=== PATIENT | female | born 1980 | race Caucasian/White ===

== ENCOUNTER 2018-04-14 09:42 | Inpatient (IN) | payer OTHER ==
[2018-04-14] MEDS ORDERED: NS 0.9% 1000 ML* 1,000 ML IV ONE ×3 (10:22→14:32)
[2018-04-14] MEDS ORDERED: Albuterol/Ipratropium NEB.SOL* Albuterol 2.5 MG/Ipratropium 0.5 MG 3 ML INH ONE ×2 (10:22→12:36)
--- NOTE | 2018-04-14 10:39 | ED ---
Shortness of Breath - HPI Summary HPI Summary: A 37 y/o F presents to ED with c/o SOB ongoing for 10 days and worsening. Associated sx: cough, hot/cold flashes, REED, malaise, sore throat, chest heaviness, nausea, v/d, stress rash to upper torso. Denies: blurry vision, pedal edema. No PMHx: COPD. She states she doesn't go to the doctor often. She is menstruating and it is heavier than usual. Pt is a smoker, ETOH daily. - History of Current Complaint Chief Complaint: EDShortnessOfBreath Hx Obtained From: Patient, Family/Claim Adjuster - boyfriend Onset/Duration: Lasting Hours, Still Present Timing: Constant Current Severity: Moderate Dyspnea At: Rest Associated Signs & Symptoms: Cough (Nonproductive) - Allergy/Home Medications Allergies/Adverse Reactions: Allergies Allergy/AdvReac Type Severity Reaction Status Date / Time No Known Allergies Allergy Verified 04/14/18 10:00 Home Medications: Home Medications NK [No Home Medications Reported] 04/14/18 [History Confirmed 04/14/18] PMH/Surg Hx/FS Hx/Imm Hx Previously Healthy: Yes Respiratory History: Denies: Hx Chronic Obstructive Pulmonary Disease (COPD) Sensory History: Denies: Hx Deafness Opthamlomology History: Denies: Hx Legally Blind Infectious Disease History: No Infectious Disease History: Denies: Traveled Outside the [place] in Last 30 Days - Family History Known Family History: Positive: Other - half sister ovarian CA - Social History Occupation: Unemployed - OTHER Lives: With Family Alcohol Use: Daily Hx Tobacco Use: Yes Review of Systems Positive: Other - hot/cold flashes; malaise Negative: Blurred Vision Positive: Sore Throat Positive: Chest Pain - "heaviness" Positive: Shortness Of Breath, Cough Positive: Vomiting, Diarrhea, Nausea Positive: other - menstruating currently Negative: Edema - pedal edema Positive: Rash - "stress" rash to upper torso Positive: Headache All Other Systems Reviewed And Are Negative: No Physical Exam - Summary Physical Exam Summary: Appearance: Alert, conversive, nontoxic appearing Skin: Warm, dry, no mottling, no rashes, no contusions. Pale. HEENT: EOMI, PERRL, dry mucous membranes Neck: No masses on the neck, supple Respiratory: Wheezing. Cardiovascular: RRR, pulses are symmetrical in both lower and upper extremities Abdomen: Soft, non-tender Bowel Sounds: Present Musculoskeletal: No CVA tenderness, no obvious deformity, moving all extremities in a grossly normal manner Neurological: A&Ox3, CN II-XII Intact, moving all extremities symmetrically Psychiatric: Normal affect and mood Triage Information Reviewed: Yes Vital Signs On Initial Exam: Initial Vitals Temp Pulse Resp BP Pulse Ox 98.6 F 106 24 143/94 91 04/14/18 09:52 04/14/18 09:52 04/14/18 09:52 04/14/18 09:52 04/14/18 09:52 Vital Signs Reviewed: Yes Diagnostics - Vital Signs Vital Signs Temp Pulse Resp BP Pulse Ox 04/14/18 09:52 98.6 F 106 24 143/94 91 - Laboratory Result Diagrams: 04/14/18 10:53 04/14/18 10:53 Lab Statement: Any lab studies that have been ordered have been reviewed, and results considered in the medical decision making process. - Radiology CXR Xray Interpretation: Positive (See Comments) - IMPRESSION: HYPERINFLATION WHICH CAN BE SEEN WITH COPD OR REACTIVE AIRWAY DISEASE. NO ACTIVE CARDIOPULMONARY DISEASE. ED provider has reviewed this report. Radiology Interpretation Completed By: Radiologist Re-Evaluation - Re-Evaluation 1 Re-Evaluation Time: 11:56 Change: Improved Comment: Feeling better after one breathing treatment, did make her feel a bit nauseous. Will order Zofran. Lungs are less wheezy. 2 Re-Evaluation Time: 12:49 Change: Unchanged Comment: Pt still feels lightheaded and dizzy. Has not received 2nd breathing treatment or 2nd bag of fluids. 3 Re-Evaluation Time: 14:28 Change: Unchanged Comment: Pt still feeling dizzy, lightheadedness. Per pt's boyfriend, pt just finished 7 day course of Levaquin. 4 Re-Evaluation Time: 17:08 Change: Unchanged Comment: Pt appears visibly improved. However, pt was 88% on room air after ambulating around ED. 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 Associated sx: coughing, hot/cold flashes, REED, malaise, sore throat, chest heaviness, nausea, v/d, stress rash to upper torso. Flu test are negative. Personally ambulated pt around ED. Pt was 88% on room air afterwards. - Diagnoses Provider Diagnoses: Upper respiratory infection - Physician Notifications Discussed Care of Patient With: Susan Arana - hospitalist Time Discussed With Above Provider: 17:28 Instructed by Provider To: Admit As Inpatient Discharge - Sign-Out/Discharge Documenting (check all that apply): Patient Departure - ADM - Discharge Plan Condition: Stable Disposition: ADMITTED TO [facility] - Billing Disposition and Condition Condition: STABLE Disposition: Admitted to [facility] - Attestation Statements Document Initiated by Scribe: Yes Documenting Scribe: London Whitaker Provider For Whom Franko is Documenting (Include Credential): Dr. Yashira Jean MD Scribe Attestation: London Rasheed, scribed for Dr. Yashira Jean MD on 04/14/18 at 2150. Scribe Documentation Reviewed: Yes Provider Attestation: The documentation as recorded by the scribeLondon accurately reflects the service I personally performed and the decisions made by me, Dr. Yashira Jean MD
--- NOTE | 2018-04-14 11:01 | RAD ---
HISTORY: cough, sob COMPARISONS: None VIEWS: 4: Frontal dual-energy and lateral views of the chest. FINDINGS: CARDIOMEDIASTINAL SILHOUETTE: The cardiomediastinal silhouette is normal. DONITA: The donita are normal. PLEURA: The costophrenic angles are sharp. No pleural abnormalities are noted. LUNG PARENCHYMA: There is hyperinflation with flattening of the diaphragm and expansion of the retrosternal airspace.. ABDOMEN: The upper abdomen is clear. There is no subphrenic gas. BONES AND SOFT TISSUES: No bone or soft tissue abnormalities are noted. OTHER: None. IMPRESSION: HYPERINFLATION WHICH CAN BE SEEN WITH COPD OR REACTIVE AIRWAY DISEASE. NO ACTIVE CARDIOPULMONARY DISEASE.
[2018-04-14 11:06] LABS: ABS Basophils 0.1 10^3/ul (0-0.2); ABS Eosinophils 0.3 10^3/ul (0-0.6); ABS Lymphocytes 1.3 10^3/ul (1.0-4.8); ABS Monocytes 0.7 10^3/ul (0-0.8); ABS Neutrophils 12.5 10^3/ul (1.5-7.7); ABS Nucleated RBC 0 10^3/ul; Eosinophil % 1.7 % (0-6); Hematocrit 48 % (35-47); Hemoglobin 15.9 g/dl (12.0-16.0); Lymphocyte % 8.9 % (25-47); Mean Corpuscular HGB Conc 33 g/dl (31-36); Mean Corpuscular Hemoglobin 31 pg (27-31); Mean Corpuscular Volume 94 fL (80-97); Mean Platelet Volume 8.1 um3 (7.4-10.4); Nucleated Red Blood Cells % 0.1; Platelet Count 237 10^3/ul (150-450); Red Blood Count 5.08 10^6/ul (4.00-5.40); Red Cell Distribution Width 13 % (10.5-15); White Blood Count 14.8 10^3/ul (3.5-10.8)
[2018-04-14] MEDS ORDERED: Ketorolac INJ* 30 MG/ML 1 ML VIAL IV PUSH ONE (11:14)
[2018-04-14] MEDS ORDERED: Ondansetron INJ* 2 MG/ML VIAL IV ONE (11:14)
[2018-04-14 11:20] LABS: EGFR Non-African American 83.6 (>60)
[2018-04-14] MEDS ORDERED: methylPREDNISolone 125 MG* 2 ML VIAL IV ONE (11:54)
[2018-04-14] MEDS ORDERED: Metoclopramide IV* 5 MG/ML 2 ML VIAL IV SLOW PU ONE (14:32)
[2018-04-14] MEDS ORDERED: Mouth Piece, Nicotine* 1 EACH CARTRIDGE INH PRN (18:07)
[2018-04-14] MEDS ORDERED: Nicotine Inhaler* 10 MG AMP INH PRN (18:07)
--- NOTE | 2018-04-14 18:09 | ADMNOTE ---
Subjective Date of Service: 04/14/18 Interval History: ADMISSION HISTORY AND PHYSICAL EXAM: Allergies Allergy/AdvReac Type Severity Reaction Status Date / Time No Known Allergies Allergy Verified 04/14/18 10:00 Home Medications Medication Instructions Recorded Confirmed Type NK [No Home Medications Reported] 04/14/18 04/14/18 History HPI: The patient was in her usual state of health until about 10 days ago. She developed cough, chills, sweats. She was given a 7 day course of levofloxacin by her SOs father, which she finished 2 days ago. SHe had a rash on her trunk which has mostly resolved. Family History: Findings - Half-sister had ovarian cancer. Social History: Findings - Smokes, no alcohol abuse. 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 SO Bernardo Sue is her SDM. Past Medical History: Findings - Nulligravida. Surgery on umbilicus age 4, surgery cyst behind R ear as adult. Review of Systems - Measurements Intake and Output: Intake and Output Last 24 Hours 04/12/18 04/13/18 04/14/18 04/15/18 06:59 06:59 06:59 06:59 Intake Total 1000 Balance 1000 Weight 98 lb Intake: IV Fluids 1000 - Review of Systems Constitutional Symptoms: Negative: Weight Gain, Weight Loss, Weakness, Fatigue, Fever, Night Sweats, Unexplained Falls, Other Dermatology: Positive: Normal HEENT: Positive: Normal Eyes: Positive: Normal Thyroid: Positive: Normal Pulmonary: Positive: Cough Cardiology: Positive: Normal Gastroenterology: Positive: Normal Genital - Urinary: Positive: Normal Endocrinology: Positive: Normal Hematologic/Lymphatic: Negative: Anemia, Easy Brusing, Hx Leukemia, Hx Lymphoma, Use of Anticoagulant, Use of Antiplatelet Drugs, Other Neurology: Positive: Normal Psychiatry: Positive: Normal Allergic/Immunologic: Negative: Hx Anaphylaxis, Hx Angioedema, Hx Environmental, Hx Seasonal, Athsma, Hx HIV, Immunocompromise, Swollen Glands LymphNodes, Other Objective Active Medications: Potassium Chloride/Dextrose (D5w 1/2 Ns Kcl 20 Meq 1000 Ml*) 1,000 mls @ 100 mls/hr IV PER RATE [facility] Methylprednisolone Sodium Succinate (Solu-Medrol 40 Mg) 40 mg IV Q8H [facility] Vital Signs - 8 hr 04/14/18 04/14/18 04/14/18 11:00 12:03 12:30 Pulse Rate 78 Respiratory 17 17 25 Rate Blood Pressure 113/86 128/89 128/84 (mmHg) O2 Sat by Pulse 94 Oximetry 04/14/18 04/14/18 04/14/18 13:00 13:30 14:00 Pulse Rate 81 80 Respiratory 16 16 20 Rate Blood Pressure 142/103 141/76 142/91 (mmHg) O2 Sat by Pulse 91 92 Oximetry 04/14/18 04/14/18 04/14/18 14:30 14:59 15:01 Pulse Rate 97 Respiratory 19 20 17 Rate Blood Pressure 148/96 134/90 142/98 (mmHg) O2 Sat by Pulse 90 Oximetry 04/14/18 04/14/18 04/14/18 15:02 15:30 16:00 Pulse Rate Respiratory 18 19 30 Rate Blood Pressure 138/87 147/93 127/73 (mmHg) O2 Sat by Pulse Oximetry 04/14/18 16:30 Pulse Rate Respiratory 28 Rate Blood Pressure 125/80 (mmHg) O2 Sat by Pulse Oximetry Oxygen Devices in Use Now: Nasal Cannula Appearance: Alert, sitting up on ED stretcher. In fair spirits. Occ dry cough , somewhat tachypneic. Eyes: No Scleral Icterus Ears/Nose/Mouth/Throat: Clear Oropharnyx, Mucous Membranes Moist Neck: NL Appearance and Movements; NL JVP, No Thyroid Enlargement, Masses Respiratory: Symmetrical Chest Expansion and Respiratory Effort, Clear to Percussion, - - severe wheezing, delayed expiration BL Cardiovascular: NL Sounds; No Murmurs; No JVD, RRR, No Edema, - Abdominal: NL Sounds; No Tenderness; No Distention, No Hepatosplenomegaly, - Extremities: No Edema, No Clubbing, Cyanosis, - Skin: No Nodules or Sclerosis, - - FIne macular rash lower anterior chest. Neurological: Alert and Oriented x 3, NL Sensation, NL Gait, NL Muscle Strength and Tone, - Result Diagrams: 04/14/18 10:53 04/14/18 10:53 Microbiology and Other Data: Microbiology 04/14/18 12:00 Influenza Types A,B Antigen - Final Nasal Specimen received for Influenza A/B Molecular testing Assess/Plan/Problems-Billing Assessment: - Patient Problems (1) Asthmatic bronchitis Current Visit: Yes Status: Acute Code(s): J45.909 - UNSPECIFIED ASTHMA, UNCOMPLICATED SNOMED Code(s): 010588796 Comment: Rash supports viral etiology. She did not respond to 7 days of levofloxacin, will hold off antibiotic now unless repeat lactic acid is higher. IV steroids, inhaled Duoneb. Monitor peak flow. (2) Tobacco abuse Current Visit: Yes Status: Acute Code(s): Z72.0 - TOBACCO USE SNOMED Code( s): 119867773 Comment: Pt advised to quit smoking and avoid second hand smoke. Her SO smokes. NRT ordered. Pt states she started smoking age 13 and was smoking steadily by age 16.
[2018-04-14] MEDS ORDERED: Albuterol (2.5 MG) 0.5 % CONC 2.5 MG/0.5 ML NEB.SOLN (ICU and ED only) INH ONE (18:17)
[2018-04-14] MEDS ORDERED: Albuterol 2.5 MG/3 ML NEB.SOL* (0.083%) INH PRN (18:21)
[2018-04-14] MEDS: D5W 1/2 NS KCl 20 Meq 1000 ML* 1,000 ML IV SCH (19:38)
[2018-04-14] MEDS: Albuterol/Ipratropium NEB.SOL* Albuterol 2.5 MG/Ipratropium 0.5 MG 3 ML INH SCH ×2 (19:48→22:19)
[2018-04-14] MEDS: methylPREDNISolone SOD 40 MG* 1 ML VIAL IV SCH (20:38)
[2018-04-14] MEDS ORDERED: Iohexol 350* (CONTRAST) 500 ML MDV IV ONE (21:39)
[2018-04-14] MEDS: Ondansetron INJ* 2 MG/ML VIAL IV PRN (22:13)
--- NOTE | 2018-04-14 22:28 | RAD ---
EXAM: CT Angiography Chest With Intravenous Contrast EXAM DATE/TIME: 04/14/2018 10:00 PM CLINICAL HISTORY: 37 years old, female; Signs and symptoms; Shortness of breath; Additional info: R/O pe TECHNIQUE: Axial computed tomographic angiography images of the chest with intravenous contrast using CT angiography protocol. All CT scans at this facility use at least one of these dose optimization techniques: automated exposure control; mA and/or kV adjustment per patient size (includes targeted exams where dose is matched to clinical indication); or iterative reconstruction. Coronal and sagittal reformatted images were created and reviewed. MIP reconstructed images were created and reviewed. CONTRAST: 51 ml of OMNI 350 administered intravenously. COMPARISON: DX CXR CHEST PA LAT 2 VWS 04/14/2018 10:29 AM FINDINGS: Pulmonary arteries: Pulmonary arteries are well opacified to the subsegmental branches. Normal caliber main pulmonary artery. No filling defects throughout the pulmonary artery tree. Aorta: Normal caliber aorta with no evidence of dissection or rupture. Lungs: Mild centrilobular emphysematous disease. No pulmonary nodules, masses, or consolidations. No bronchiectasis, peribronchial thickening, or luminal defects. Pleural space: Normal. No pneumothorax. No pleural effusion. Heart: Normal. No cardiomegaly. No pericardial effusion. Thyroid: No thyroid nodules. Bones/joints: No fractures. No suspicious bone lesions. Soft tissues: Normal. Lymph nodes: Normal. No enlarged lymph nodes. IMPRESSION: 1. No pulmonary emboli. 2. Mild emphysema. To contact [facility] with a general question: [facility] - [phone] For direct physician to physician contact: Physician Hotline - [phone] [facility] ([facility] Facility ID #[id number])
[2018-04-15] MEDS: methylPREDNISolone SOD 40 MG* 1 ML VIAL IV SCH (03:08)
[2018-04-15] MEDS: D5W 1/2 NS KCl 20 Meq 1000 ML* 1,000 ML IV SCH ×3 (05:20→21:36)
[2018-04-15] MEDS: Ondansetron INJ* 2 MG/ML VIAL IV PRN ×2 (05:24→19:45)
[2018-04-15] MEDS: Albuterol/Ipratropium NEB.SOL* Albuterol 2.5 MG/Ipratropium 0.5 MG 3 ML INH SCH ×4 (07:40→19:32)
--- NOTE | 2018-04-15 07:59 | PN ---
Subjective Date of Service: 04/15/18 Interval History: Slighlty better. No new c/o. She refused the nicotine patch. Nausea with neb treatments, ondansetron IV was ordered. Family History: Findings - Half-sister had ovarian cancer. Social History: Findings - Smokes, no alcohol abuse. 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 SO Bernardo Sue is her SDM. Past Medical History: Findings - Nulligravida. Surgery on umbilicus age 4, surgery cyst behind R ear as adult. Objective Active Medications: Albuterol (Ventolin 2.5 Mg/3 Ml Neb.Tarsha*) 2.5 mg INH Q2H PRN PRN Reason: WHEEZING Last Admin: 04/15/18 04:54 Dose: 2.5 mg Albuterol/Ipratropium (Duoneb (Albuterol 2.5 Mg/Ipratropium 0.5 Mg)) 1 neb INH [id number] AWAKE [facility]LLY Last Admin: 04/15/18 07:40 Dose: 1 neb Device (Nicotine Mouth Piece*) 1 each INH .USE WITH NICOTROL PRN PRN Reason: CRAVING Last Admin: 04/14/18 20:36 Dose: 1 each Potassium Chloride/Dextrose (D5w 1/2 Ns Kcl 20 Meq 1000 Ml*) 1,000 mls @ 70 mls /hr IV PER RATE [facility] Nicotine (Nicotine Inhaler*) 10 mg INH Q2H PRN PRN Reason: CRAVING Last Admin: 04/14/18 20:35 Dose: 10 mg Nicotine (Nicotine Patch 7 Mg/24 Hr*) 1 patch TRANSDERM DAILY [facility] Ondansetron HCl (Zofran Inj*) 4 mg IV Q6H PRN PRN Reason: NAUSEA Last Admin: 04/15/18 05:24 Dose: 4 mg Pharmacy Profile Note (Nicotine Patch Removal Note*) 1 note PATCH OFF 2100 [facility] Prednisone (Deltasone Tab*) 50 mg PO DAILY [facility] Vital Signs - 8 hr 04/15/18 04/15/18 04/15/18 04:21 04:56 06:17 Temperature 98.2 F Pulse Rate 110 97 88 Respiratory 16 Rate Blood Pressure 90/76 114/63 (mmHg) O2 Sat by Pulse 98 98 Oximetry 04/15/18 07:36 Temperature Pulse Rate 113 Respiratory 16 Rate Blood Pressure (mmHg) O2 Sat by Pulse 98 Oximetry Oxygen Devices in Use Now: Nasal Cannula Appearance: Alert, sitting up in bed. In fair spirits. Somewhat tachypneic and occ harsh cough. Eyes: No Scleral Icterus Neck: NL Appearance and Movements; NL JVP, No Thyroid Enlargement, Masses Respiratory: Symmetrical Chest Expansion and Respiratory Effort, Clear to Percussion, - - Mod wheezing BL, better air movement than yesteday Cardiovascular: NL Sounds; No Murmurs; No JVD, RRR, No Edema, - Extremities: No Edema, No Clubbing, Cyanosis, - Neurological: Alert and Oriented x 3 Result Diagrams: 04/14/18 10:53 04/14/18 10:53 Microbiology and Other Data: Microbiology 04/14/18 12:00 Influenza Types A,B Antigen - Final Nasal Specimen received for Influenza A/B Molecular testing Assess/Plan/Problems-Billing Assessment: - Patient Problems (1) Asthmatic bronchitis Current Visit: Yes Status: Acute Code(s): J45.909 - UNSPECIFIED ASTHMA, UNCOMPLICATED SNOMED Code(s): 807992945 Comment: Rash supports viral etiology. She did not respond to 7 days of levofloxacin, will hold off antibiotic. Continue inhaled Duoneb, change to oral prednisone, last dose IV steroid 3 AM 04/15. Continue to monitor peak flow. (2) Tobacco abuse Current Visit: Yes Status: Acute Code(s): Z72.0 - TOBACCO USE SNOMED Code( s): 827706368 Comment: Pt advised to quit smoking and avoid second hand smoke. Her SO smokes. NRT ordered. Pt states she started smoking age 13 and was smoking steadily by age 16.
[2018-04-15] MEDS: Nicotine PATCH 7 MG/24 HR* PATCH TRANSDERM SCH (09:42)
[2018-04-15] MEDS: guaiFENesin ER TAB 600 MG PO SCH ×2 (15:51→21:40)
[2018-04-15] MEDS ORDERED: Levalbuterol 1.25MG/0.5ML NEB INH PRN (17:12)
--- NOTE | 2018-04-15 17:22 | PN ---
Progress Note - Progress Note Date of Service: 04/15/18 Note: The patient reports her sputum has turned yellow. Still had mod-sever wheezing BL. Two breaths per sentence, occ pursed-lip breathing. Start azithromycin and ceftriaxone. Start mometasone/formoterol OM 04/15. COntinue to monitor peak flow.
[2018-04-15] MEDS: Azithromycin IV(*) 500 MG in NS 0.9% 250 ML* 250 ML IVPB SCH (18:05)
[2018-04-15] MEDS: Mometasone/Formoter 200/5 MDI INH SCH (19:32)
[2018-04-15] MEDS: Levalbuterol 1.25MG/0.5ML NEB INH SCH (19:41)
[2018-04-15] MEDS: cefTRIAXone(*) 1 GM in NS 0.9% 50 ML* 50 ML IVPB SCH (21:37)
[2018-04-15] MEDS: Nicotine Patch Removal NOTE PATCH OFF SCH (21:40)
[2018-04-16] MEDS: Levalbuterol 1.25MG/0.5ML NEB INH SCH ×4 (00:17→10:48)
[2018-04-16] MEDS: Albuterol/Ipratropium NEB.SOL* Albuterol 2.5 MG/Ipratropium 0.5 MG 3 ML INH SCH ×7 (00:18→23:03)
[2018-04-16] MEDS ORDERED: Benzonatate CAP* 100 MG PO PRN (01:10)
[2018-04-16] MEDS: traZODone TAB* 50 MG TAB PO PRN (01:20)
[2018-04-16] MEDS: Mometasone/Formoter 200/5 MDI INH SCH ×2 (07:57→19:45)
[2018-04-16] MEDS ORDERED: predniSONE TAB* 50 MG PO SCH (09:00)
[2018-04-16 09:04] LABS: ABS Basophils 0.1 10^3/ul (0-0.2); ABS Eosinophils 0 10^3/ul (0-0.6); ABS Lymphocytes 1.6 10^3/ul (1.0-4.8); ABS Neutrophils 14.8 10^3/ul (1.5-7.7); ABS Nucleated RBC 0 10^3/ul; Eosinophil % 0.2 % (0-6); Hematocrit 38 % (35-47); Hemoglobin 13.1 g/dl (12.0-16.0); Mean Corpuscular HGB Conc 35 g/dl (31-36); Mean Corpuscular Hemoglobin 32 pg (27-31); Mean Corpuscular Volume 92 fL (80-97); Nucleated Red Blood Cells % 0; Platelet Count 218 10^3/ul (150-450); Red Blood Count 4.12 10^6/ul (4.00-5.40); Red Cell Distribution Width 13 % (10.5-15); White Blood Count 17.5 10^3/ul (3.5-10.8)
[2018-04-16] MEDS: Enoxaparin(*) 40 MG/0.4 ML SYR SUBCUT SCH (10:09)
[2018-04-16] MEDS: guaiFENesin ER TAB 600 MG PO SCH ×2 (10:10→21:51)
[2018-04-16] MEDS: Nicotine PATCH 7 MG/24 HR* PATCH TRANSDERM SCH (10:10)
[2018-04-16] MEDS ORDERED: Levalbuterol 1.25MG/0.5ML NEB INH PRN (11:34)
--- NOTE | 2018-04-16 13:09 | PN ---
Subjective Date of Service: 04/16/18 Interval History: Pt seen and examined. Meds and labs reviewed. CC: SOB improved from yesterday and nasal congestion ROS: Denied REED/dizziness, F/C, N/V, CP, increased cough, sputum volume and color improving, abd pain, diarrhea, constipation, dysuria, myalgias, arthralgias, throat pain, and new skin lesions. The rest of the 14 point ROS are unremarkable. PHYSICAL EXAM: GEN APPEARANCE: Awake, not in acute distress HEENT: NC/AT, PERRLA, moist oral mucosa, (-) throat erythema NECK: Soft, supple, (-) cervical LAD, (-)JVD HEART: S1S2 WNL, RRR, No MRG CHEST: (+)Wheezing throughout all lung sosa, poor air entry at bases, No W/R/R ABD: Soft, ND/NT, NABS 4x Q EXT: No C/C/E SKIN: Warm to touch PSYCH: No active psychosis, hallucinations, depression, SI/HI Family History: Findings - Half-sister had ovarian cancer. Social History: Findings - Smokes, no alcohol abuse. 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 SO Bernardo Poncesea is her SDM. Past Medical History: Findings - Nulligravida. Surgery on umbilicus age 4, surgery cyst behind R ear as adult. Objective Active Medications: Albuterol/Ipratropium (Duoneb (Albuterol 2.5 Mg/Ipratropium 0.5 Mg)) 1 neb INH [id number] AWAKE [facility] Last Admin: 04/16/18 10:51 Dose: Not Given Benzonatate (Tessalon Cap*) 100 mg PO BID PRN PRN Reason: COUGH Last Admin: 04/16/18 02:55 Dose: 100 mg Device (Nicotine Mouth Piece*) 1 each INH .USE WITH NICOTROL PRN PRN Reason: CRAVING Last Admin: 04/14/18 20:36 Dose: 1 each Enoxaparin Sodium (Lovenox(*)) 40 mg SUBCUT Q24H [facility] Last Admin: 04/16/18 10:09 Dose: 40 mg Guaifenesin (Mucinex*) 600 mg PO BID [facility] Last Admin: 04/16/18 10:10 Dose: 600 mg Potassium Chloride/Dextrose (D5w 1/2 Ns Kcl 20 Meq 1000 Ml*) 1,000 mls @ 70 mls /hr IV PER RATE [facility] Last Admin: 04/15/18 21:36 Dose: 70 mls/hr Ceftriaxone Sodium 1 gm/ (Sodium Chloride) 50 mls @ 200 mls/hr IVPB Q24H [facility] Last Admin: 04/15/18 21:37 Dose: 200 mls/hr Azithromycin 500 mg/ Sodium (Chloride) 250 mls @ 250 mls/hr IVPB Q24H [facility] Last Admin: 04/15/18 18:05 Dose: 250 mls/hr Levalbuterol HCl (Xopenex 1.25 Mg/0.5 Ml Neb.Tarsha*) 1.25 mg INH Q2H PRN PRN Reason: Wheezing/SOB Methylprednisolone Sodium Succinate (Solu-Medrol 40 Mg) 40 mg IV Q6H [facility] Mometasone Furoate/Formoterol Fumar (Dulera 200/5 Mdi*) 2 puff INH BID [facility] Last Admin: 04/16/18 07:57 Dose: 2 puff Nicotine (Nicotine Inhaler*) 10 mg INH Q2H PRN PRN Reason: CRAVING Last Admin: 04/14/18 20:35 Dose: 10 mg Nicotine (Nicotine Patch 7 Mg/24 Hr*) 1 patch TRANSDERM DAILY [facility] Last Admin: 04/16/18 10:10 Dose: Not Given Ondansetron HCl (Zofran Inj*) 4 mg IV Q6H PRN PRN Reason: NAUSEA Last Admin: 04/15/18 19:45 Dose: 4 mg Oxymetazoline HCl (Afrin 0.05% Nasal Elmo*) 2 spray BOTH NARES BID [facility] Stop: 04/19/18 12:59 Pharmacy Profile Note (Nicotine Patch Removal Note*) 1 note PATCH OFF 2100 [facility] Last Admin: 04/15/18 21:40 Dose: 1 note Trazodone HCl (Desyrel Tab*) 50 mg PO BEDTIME PRN PRN Reason: SLEEP Last Admin: 04/16/18 01:20 Dose: 50 mg Vital Signs - 8 hr 04/16/18 04/16/18 04/16/18 07:17 08:00 08:03 Temperature 97.7 F Pulse Rate 116 105 Respiratory 16 14 16 Rate Blood Pressure 117/85 (mmHg) O2 Sat by Pulse 95 94 Oximetry 04/16/18 04/16/18 08:04 10:52 Temperature Pulse Rate 105 Respiratory 16 14 Rate Blood Pressure (mmHg) O2 Sat by Pulse 94 Oximetry Oxygen Devices in Use Now: None Result Diagrams: 04/16/18 08:55 04/16/18 08:55 Microbiology and Other Data: Microbiology 04/14/18 12:00 Influenza Types A,B Antigen - Final Nasal Specimen received for Influenza A/B Molecular testing Assess/Plan/Problems-Billing Assessment: - Patient Problems (1) Asthmatic bronchitis Current Visit: Yes Status: Acute Code(s): J45.909 - UNSPECIFIED ASTHMA, UNCOMPLICATED SNOMED Code(s): 214295269 Comment: -Rash supports viral etiology. She did not respond to 7 days of levofloxacin, will hold off antibiotic. -Pts CTA of chest 2 days prior shows no PE -Will repeat CXR, PA-lateral to determine if PNA has subsequently developed; For ABG and ambulatory sats in AM; pt had been placed on Rocephin and Azithromycin yesterday -Will increase Solumedrol frequency as ordered -Will adjust nebulization as ordered (2) Tobacco abuse Current Visit: Yes Status: Acute Code(s): Z72.0 - TOBACCO USE SNOMED Code( s): 797846296 Comment: -Advised life-style modifications -Continue Nicotine patch (3) DVT prophylaxis Current Visit: Yes Status: Acute Code(s): [id number] - SNOMED Code(s): 372543706 Comment: -Will place pt on low dose SQ Lovenox Status and Disposition: -For ambulatory saturation and ABG in AM -For possible D/C in 1-2 days
--- NOTE | 2018-04-16 14:07 | RAD ---
HISTORY: Persistent wheeing and SOB with sputum quality renato COMPARISONS: April 14, 2018 VIEWS: 4: Frontal dual-energy and lateral views of the chest. FINDINGS: CARDIOMEDIASTINAL SILHOUETTE: The cardiomediastinal silhouette is normal. DONITA: The donita are normal. PLEURA: The costophrenic angles are sharp. No pleural abnormalities are noted. LUNG PARENCHYMA: There is hyperinflation with flattening of the diaphragm and expansion of the retrosternal airspace. ABDOMEN: The upper abdomen is clear. There is no subphrenic gas. BONES AND SOFT TISSUES: No bone or soft tissue abnormalities are noted. OTHER: None. IMPRESSION: HYPERINFLATION. NO ACTIVE CARDIOPULMONARY DISEASE.
[2018-04-16] MEDS: Oxymetazoline 0.05% NASAL SPR* 15 ML BTL BOTH NARES SCH ×3 (15:14→21:51)
[2018-04-16] MEDS: methylPREDNISolone SOD 40 MG* 1 ML VIAL IV SCH ×3 (15:14→23:32)
[2018-04-16] MEDS: D5W 1/2 NS KCl 20 Meq 1000 ML* 1,000 ML IV SCH (15:59)
[2018-04-16] MEDS: cefTRIAXone(*) 1 GM in NS 0.9% 50 ML* 50 ML IVPB SCH (19:20)
[2018-04-16] MEDS: Azithromycin IV(*) 500 MG in NS 0.9% 250 ML* 250 ML IVPB SCH (19:20)
[2018-04-16] MEDS ORDERED: Fluticasone-Salmeterol 500-50* DISKUS INH SCH (21:00)
[2018-04-16] MEDS ORDERED: PROCHLORPERAZINE INJ 5 MG/ML 2 ML VIAL IV PRN (21:30)
--- NOTE | 2018-04-16 21:31 | PN ---
Progress Note - Progress Note Date of Service: 04/16/18 Note: Paged - patient has adverse reaction while getting IV azithromycin - second night in a row where she becomes clammy, anxious and nauseated. Will D/C azithromycin. No PNA seen on CTA. Zofran did not help for her. Add compazine.
[2018-04-16] MEDS: Nicotine Patch Removal NOTE PATCH OFF SCH (21:51)
[2018-04-17] MEDS: traZODone TAB* 50 MG TAB PO PRN (01:32)
[2018-04-17] MEDS: D5W 1/2 NS KCl 20 Meq 1000 ML* 1,000 ML IV SCH (05:41)
[2018-04-17] MEDS: methylPREDNISolone SOD 40 MG* 1 ML VIAL IV SCH ×2 (05:42→13:20)
[2018-04-17] MEDS: Albuterol/Ipratropium NEB.SOL* Albuterol 2.5 MG/Ipratropium 0.5 MG 3 ML INH SCH ×3 (06:20→11:52)
[2018-04-17 07:12] LABS: ABS Basophils 0 10^3/ul (0-0.2); ABS Eosinophils 0 10^3/ul (0-0.6); ABS Lymphocytes 0.8 10^3/ul (1.0-4.8); ABS Monocytes 0.3 10^3/ul (0-0.8); ABS Neutrophils 12.8 10^3/ul (1.5-7.7); ABS Nucleated RBC 0 10^3/ul; Eosinophil % 0 % (0-6); Hematocrit 38 % (35-47); Hemoglobin 13.1 g/dl (12.0-16.0); Lymphocyte % 5.7 % (25-47); Mean Corpuscular HGB Conc 35 g/dl (31-36); Mean Corpuscular Hemoglobin 32 pg (27-31); Mean Corpuscular Volume 92 fL (80-97); Mean Platelet Volume 7.9 um3 (7.4-10.4); Nucleated Red Blood Cells % 0; Platelet Count 219 10^3/ul (150-450); Red Cell Distribution Width 13 % (10.5-15); White Blood Count 13.9 10^3/ul (3.5-10.8)
[2018-04-17 07:37] LABS: EGFR Non-African American 113.1 (>60)
[2018-04-17] MEDS: Mometasone/Formoter 200/5 MDI INH SCH (08:29)
[2018-04-17] MEDS: Oxymetazoline 0.05% NASAL SPR* 15 ML BTL BOTH NARES SCH (10:06)
[2018-04-17] MEDS: guaiFENesin ER TAB 600 MG PO SCH (10:08)
[2018-04-17] MEDS: Enoxaparin(*) 40 MG/0.4 ML SYR SUBCUT SCH (10:09)
[2018-04-17] MEDS: Nicotine PATCH 7 MG/24 HR* PATCH TRANSDERM SCH (10:12)
[2018-04-17 12:41] VITALS: BP 126/85
--- NOTE | 2018-04-18 03:34 | DS ---
CC: Santosh Arauz MD; Dr. Yashira Jean; Dr. Johnathon Castro * DISCHARGE SUMMARY: DATE OF ADMISSION: DATE OF DISCHARGE: 04/17/18 DISCHARGE DIAGNOSES: 1. Asthmatic bronchitis. 2. Tobacco abuse. 3. Upper respiratory tract infection, likely viral causing asthmatic bronchitis along with her tobacco abuse. HISTORY OF PRESENT ILLNESS/HOSPITAL COURSE: The patient is a 37-year-old lady with history of asthma, who was admitted on 04/14/18 for chief complaint of cough, chills, and sweats as well as shortness of breath where she was diagnosed with asthmatic bronchitis likely secondary to a viral cause; at which point, she was initially not placed on antibiotics, but then subsequently complained that the quality of her sputum has thickened and developed more yellowish color; hence, she was then subsequently placed on Rocephin and azithromycin. Unfortunately, she has not tolerated azithromycin well given she would complain of some nausea. She also complained of some nasal congestion and has been placed on Afrin and her aforementioned symptoms have subsequently improved and feels better today. In addition, despite the fact that she was on low dose prednisone as well as nebulization, she had some significant wheezes at the time that she felt some nasal congestion. Therefore, her steroid need was increased and oxymetazoline prescribed, which resolved all of her respiratory problems along with the medication changes just described. She has done well prior to discharge and has underwent ambulatory saturations, which was otherwise unremarkable without any need for oxygen. She had been advised to follow up and/or call her PCP within 3 days post discharge and she was advised that if her symptoms resume or develop new ones or feel unwell for any reason to call her PCP first and if her PCP cannot entertain her due to scheduling issues alone to call [facility] if the issue is non- emergent. She was advised to avoid smoking and to use nicotine inhalers as needed and daily nicotine patches as ordered. She was advised to call my office regarding any questions, concerns, or further clarifications regarding her discharge plans and/or prescriptions and to take her medications as prescribed. Her discharge medications are as follows. DISCHARGE MEDICATIONS: 1. Benzonatate capsule 100 mg p.o. b.i.d. p.r.n. 2. Guaifenesin 600 mg tab ER p.o. b.i.d. for 5 days. 3. Dulera 200/5 mcg MDI 2 puffs inhalation b.i.d. for 30 days. 4. Nicotine inhaler 10 mg inhalation q.2 hours p.r.n. 5. Nicotine patch 7 mg per day. 6. Oxymetazoline 2 sprays to both nares b.i.d. for 2 more days. 7. Trazodone 50 mg p.o. q.h.s. p.r.n. for insomnia. 8. Floranex 1 tab p.o. daily for 5 more days. 9. Prednisone rapid taper as ordered. TIME SPENT: The total time spent evaluating the patient, reviewing pertinent data, and appropriate documentation is 40 minutes. [id number]/CPS #: [id number]
== END 2018-04-17 15:25 | disposition home or self-care (01) | DRG 141 ==
LOC: ED 09:42 → SSU 17:56 → MED 04-16 15:38
PROVIDERS: ADMIT Internal Medicine; ATTEND Student in an Organized Health Care Education/Training Program
DX: J45.909 Unspecified asthma, uncomplicated (principal); J02.9 Acute pharyngitis, unspecified; F17.200 Nicotine dependence, unspecified, uncomplicated; R21 Rash and other nonspecific skin eruption; J06.9 Acute upper respiratory infection, unspecified; R11.0 Nausea; T36.3X5A Adverse effect of macrolides, initial encounter; Y92.239 Unspecified place in hospital as the place of occurrence of the external cause; Z80.41 Family history of malignant neoplasm of ovary; Z72.89 Other problems related to lifestyle; Z79.52 Long term (current) use of systemic steroids
CPT/HCPCS: 36415; 71046; 71275; 80048; 80053; 83605; 83735; 84100; 85025; 87040; 94640; 99284; 99406; A9270-GY; J0456; J0696; J0780; J1650; J1885; J2405; J2765; J2920; J2930; J7512; Q9967